=== PATIENT | female | born 1970 ===

== ENCOUNTER → 2017-04-30 | Outpatient (CLI) | payer BC ==
--- NOTE | 2017-05-03 13:48 | MAMMOGRAPHY REPORT ---
BILATERAL DIGITAL SCREENING MAMMOGRAM TOMOSYNTHESIS WITH CAD: 04/30/2017 CLINICAL HISTORY: Routine screening. TECHNIQUE: Breast tomosynthesis in addition to standard 2D mammography was performed. Current study was also evaluated with a Computer Aided Detection (CAD) system. COMPARISON: Comparison is made to exams dated: 06/11/2014 mammogram and 04/29/2016 mammogram - [facility]. Also 09/02/2012 mammogram. BREAST COMPOSITION: There are scattered areas of fibroglandular density in both breasts. FINDINGS: There is a small oval partially circumscribed and partially obscured 8 mm mass in the righ t superior breast, thought to project laterally on the cc view, which may represent a cyst or intrama mmary lymph node although spot compression tomosynthesis views and possible breast ultrasound are rec ommended for further evaluation. The remainder of both breasts are stable compared to prior exams, without suspicious masses, calcific ations, or areas of architectural distortion noted. Scattered bilateral benign-appearing calcificati ons are again noted. IMPRESSION: ACR BI-RADS CATEGORY 0: INCOMPLETE EVALUATION: NEED ADDITIONAL IMAGING EVALUATION Right superior breast mass, for which additional imaging evaluation is recommended. The patient will be called to schedule an appointment. Approximately 10% of breast cancers are not detected with mammography. A negative mammographic report should not delay biopsy if a clinically suggestive mass is present. Tamika Ambrosio M.D. ah/:05/01/2017 14:53:25 Textile Engineer: Gustavo MINOR(Sandra)(M), [facility] letter sent: Addl Imaging 0 BI-RADS Code: ACR BI-RADS Category 0: Incomplete Evaluation: Need Additional Imaging Evaluation
== END | disposition home or self-care (01) ==
LOC: C.MAMM 08:31
PROVIDERS: ATTEND Family Medicine
DX: Z12.31 Encounter for screening mammogram for malignant neoplasm of breast (principal); N63 Unspecified lump in breast

== ENCOUNTER → 2017-05-12 | Outpatient (CLI) | payer BC ==
--- NOTE | 2017-05-12 13:50 | MAMMOGRAPHY REPORT ---
UNILATERAL RIGHT DIGITAL DIAGNOSTIC MAMMOGRAM TOMOSYNTHESIS AND TARGETED RIGHT ULTRASOUND: 05/12/2017 CLINICAL HISTORY: 46-year-old woman called back from screening mammography for a partially circumscri bed and obscured oval 8 x 6 mm mass in the superior posterior breast on the MLO view. TECHNIQUE: Spot compression right CC and MLO 2-D and tomosynthesis images were obtained. COMPARISON: Comparison is made to exams dated: 04/30/2017 mammogram, 04/29/2016 mammogram, 06/11/2014 ammogram - [facility], and 09/02/2012 mammogram. BREAST COMPOSITION: There are scattered areas of fibroglandular density in the right breast. FINDINGS: There is effacement of the possible 8 x 6 mm mass in the superior posterior right breast o n the spot compression MLO view. No corresponding mass, architectural distortion or new asymmetry is seen on the tomosynthesis images performed in the superior posterior breast in the MLO projection. There is no evidence of a suspicious mass or architectural distortion on the spot compression CC view including tomosynthesis images. When comparing the current spot compression MLO view back to prior available for field MLO mammograms, the glandular pattern is similar in the posterior superior breast , suggesting the possible mass represented summation artifact. Targeted ultrasound was performed in the right upper outer quadrant. Sonographically normal tissue i s seen without a suspicious solid or cystic mass. IMPRESSION: ACR-BI-RADS CATEGORY 3: PROBABLY BENIGN, TARGETED ULTRASOUND ACR-BI-RADS CATEGORY 3: PRO BABLY BENIGN Effacement of the possible 8 mm mass in the superior posterior right breast mammographically, and no suspicious sonographic correlate identified. This most likely represented summation artifact and nor mal overlapping tissue, however, given the conspicuous nature of the finding on the screening mammogr am from 04/30/2017, a short interval follow-up right diagnostic mammogram including tomosynthesis stan ges and possible repeat ultrasound is recommended to ensure stability in 6 months. These results and recommendations were discussed with the patient at the time of the exam. Approximately 10% of breast cancers are not detected with mammography. A negative mammographic report should not delay biopsy if a clinically suggestive mass is present. Judith Blackburn M.D. ay/:05/12/2017 10:59:03 Scientist Propagator: Shelby MINOR(Sandra)(M), [facility] letter sent: Follow Up Recommended 3 BI-RADS Code: ACR-BI-RADS Category 3: Probably Benign Ultrasound BI-RADS: ACR-BI-RADS Category 3: Pr obably Benign
== END | disposition home or self-care (01) ==
LOC: C.MAMM 09:04
PROVIDERS: ATTEND Family Medicine
DX: N63 Unspecified lump in breast (principal)

== ENCOUNTER → 2017-05-14 | Outpatient (CLI) | payer BC | END | disposition home or self-care (01) | LOC: C.PAPS 11:49 | PROVIDERS: ATTEND Obstetrics & Gynecology | DX: Z01.419 Encounter for gynecological examination (general) (routine) without abnormal findings (principal); Z97.5 Presence of (intrauterine) contraceptive device ==

== ENCOUNTER → 2017-11-10 | Outpatient (CLI) | payer BC ==
--- NOTE | 2017-11-11 08:04 | MAMMOGRAPHY REPORT ---
UNILATERAL RIGHT DIGITAL DIAGNOSTIC MAMMOGRAM TOMOSYNTHESIS WITH CAD AND TARGETED RIGHT ULTRASOUND: CLINICAL HISTORY: 47-year-old woman presents for follow-up in the right breast of a possible 8 mm mas s versus focal asymmetry in the upper outer posterior right breast that was increasingly conspicuous compared to prior screening mammograms. No family history of breast cancer. TECHNIQUE: Right CC and MLO 2D and tomosynthesis images, spot magnification right CC and ML views wer e obtained. Current study was also evaluated with a Computer Aided Detection (CAD) system. COMPARISON: Comparison is made to exams dated: 05/12/2017 ultrasound, 05/12/2017 mammogram, 04/30/2017 ma mmogram, 06/11/2014 mammogram, 04/29/2016 mammogram - [facility], and 09/02/2012 mamm ogram. BREAST COMPOSITION: There are scattered areas of fibroglandular density in the right breast. FINDINGS: There is persistence of an 8 x 5 mm oval focal asymmetry versus partially circumscribed an d obscured mass in the upper outer posterior right breast. This has not significantly changed in siz e or visual appearance since the 04/30/2017 mammograms, but is increasingly conspicuous comparing to m ore remote prior mammograms. No associated architectural distortion or calcification. However, a po ssible new grouping of microcalcifications were seen in the upper inner posterior right breast for wh ich additional spot magnification views were obtained. One of the spot magnification ML views of the right breast demonstrates an artifact in the posterior aspect and was therefore repeated. The patient's gown still overlies the inferior posterior aspect o n the repeat view. The spot magnification views demonstrate a faint grouping of amorphous microcalci fications in the upper inner posterior breast measuring 5.1 mm. Given the interval development of th nisreen calcifications are indeterminate and further evaluation with stereotactic guided biopsy is recomm ended. Targeted ultrasound was performed in the upper outer quadrant of the right breast and including the 8 :00 axis. Sonographically normal tissue is seen without a discrete solid or cystic mass. No sonogra phic correlate to the 8 mm mammographic focal asymmetry versus mass. IMPRESSION: ACR BI-RADS CATEGORY 4: SUSPICIOUS, TARGETED ULTRASOUND ACR BI-RADS CATEGORY 4: SUSPICIO US 1. Stereotactic guided right breast biopsy is recommended for a new 5 mm grouping of amorphous micro calcifications in the upper inner posterior breast. 2. An 8 x 5 mm focal asymmetry versus partially circumscribed and obscured mass in the upper outer p osterior right breast appears stable dating back to 04/30/2017, but not clearly identified on more rem ote prior mammograms and no sonographic correlate identified to confirm a benign etiology. Therefore this asymmetry is also indeterminate and can be biopsied at the same time as the right breast calcif ications with stereotactic tomosynthesis guidance. These results and recommendations were discussed with the patient at the time of the exam. She tenta tively schedule the right breast biopsies prior to leaving her department. Approximately 10% of breast cancers are not detected with mammography. A negative mammographic report should not delay biopsy if a clinically suggestive mass is present. Judith Blackburn M.D. ay/:11/10/2017 09:00:35 Sausage Canner: Gretchen MINOR(Sandra)(M), [facility] letter sent: Abnormal 4/5 BI-RADS Code: ACR BI-RADS Category 4: Suspicious Ultrasound BI-RADS: ACR BI-RADS Category 4: Suspici ous
--- NOTE | 2017-11-16 11:07 | CODING QUERY NO DIAGNOSIS ---
TREATMENT RENDERED WITHOUT A DIAGNOSIS Dr. Walton, To promote full compliance with coding requirements relating to patient care, physician participation is requested in all cases of home health care provider uncertainty. Please assist us with providing a diagnosis/symptom for the test(s) below: A diagnosis/symptom was not documented on your Order. A valid diagnosis/symptom is required to bill all insurances. Please remember that we are unable to code a diagnosis of rule out, probable, possible, questionable, or suspected. Tests that require a diagnosis: * UNILATERAL RT TOMOSYNTHESIS DIAGNOSIS: * DIAGNOSTIC MAMMO RIGHT W/ CAD DIAGNOSIS: * ULTRASOUND BREAST LIMITED DIAGNOSIS: DATE OF SERVICE: 11/10/17 Provider Signature: Date: Thank you Jignesh Del Rio [facility] Information Management Once completed, please kindly fax back to [phone] For questions please call [phone]
== END | disposition home or self-care (01) ==
LOC: C.MAMM 08:04
PROVIDERS: ATTEND Family Medicine
DX: R92.8 Other abnormal and inconclusive findings on diagnostic imaging of breast (principal); R92.0 Mammographic microcalcification found on diagnostic imaging of breast

== ENCOUNTER → 2017-11-16 | Outpatient (CLI) | payer BC ==
--- NOTE | 2017-11-16 15:13 | MAMMOGRAPHY REPORT ---
UNILATERAL RIGHT DIGITAL DIAGNOSTIC MAMMOGRAM TOMOSYNTHESIS: 11/16/2017 CLINICAL HISTORY: Indeterminate grouping of microcalcifications in the upper inner posterior right br east, and focal asymmetry measuring 8 x 5 mm in the upper outer posterior right breast without sonogr aphic correlate. Patient presents for stereotactic guided biopsy 2. COMPARISON: Comparison is made to exams dated: 11/10/2017 mammogram, 05/12/2017 mammogram, 04/30/2017 gordon mogram, 04/29/2016 mammogram, and 06/11/2014 mammogram - [facility]. PATIENT CONSENT: After explaining the risks, benefits and alternatives of the procedure to the patien t informed consent was obtained both verbally and in writing. Specific risks include: Bleeding, infe ction, puncture of adjacent structure, nontarget biopsy, sampling error, metal allergy, pain and medi cation reaction. A timeout was performed and the right breast was agreed as the site of both biopsie s. BREAST COMPOSITION: There are scattered areas of fibroglandular density in the right breast. FINDINGS: The patient was placed prone on the stereotactic biopsy table and the calcifications in the upper inner posterior right breast were the first target for stereotactic biopsy. The right breast was placed in CC from above positioning. A scalp tomosynthesis view was obtained, which demonstrated the calcifications on the first image (superior position), suggesting they are dermal in origin. T herefore a skin BB was placed over the calcifications and a tangential view was obtained which demons trates the calcifications in question are indeed dermal and therefore benign. The stereotactic biops y was therefore canceled regarding the calcifications. Then positioning was adjusted and the right breast was placed in lateralmedial compression. The emily osynthesis copy was obtained which demonstrates the asymmetry but no persistent nodular or masslike a poncho currently identified in the targeting window. The breast was repositioned 3 additional times in the ML/MLO projection and also ultimately in the CC projection. There are findings of a focal asymme try in the upper outer posterior right breast, however, the masslike features do not persist. There is no evidence of a suspicious asymmetry and no evidence of a definite mass. This was discussed with the patient and we also decided to cancel this portion of the biopsy as well given that the mass did not persist and will obtain an MRI to exclude any abnormal enhancement or enhancing mass in that loc ation. IMPRESSION: ACR BI-RADS CATEGORY 0: INCOMPLETE EVALUATION: NEED ADDITIONAL IMAGING EVALUATION Canceled stereotactic guided biopsy 2 in the right breast. The new calcifications in the upper inne r posterior right breast corresponding to dermal calcifications on the current tomosynthesis poker prop player vi ews, and ultimately a tangential view. The 5 x 8 mm focal asymmetry in the upper outer posterior rig ht breast did not persist on the targeting tomosynthesis images, suggesting it represented normal ove rlapping tissue. However, given the conspicuous nature on both the recent and prior diagnostic mammo grams, a breast MRI is recommended to exclude any suspicious enhancing mass. These new recommendations were discussed with the patient after the canceled biopsies, and she tentat ively scheduled the breast MRI prior to leaving the department. Approximately 10% of breast cancers are not detected with mammography. A negative mammographic report should not delay biopsy if a clinically suggestive mass is present. Judith Blackburn M.D. ay/:11/16/2017 14:38:27 Microsoft Bi Consultant: Gustavo MINOR(R)(Cuong), [facility] letter sent: Addl Imaging 0 BI-RADS Code: ACR BI-RADS Category 0: Incomplete Evaluation: Need Additional Imaging Evaluation
== END | disposition home or self-care (01) ==
LOC: C.MAMM 12:36
PROVIDERS: ATTEND Family Medicine
DX: R92.1 Mammographic calcification found on diagnostic imaging of breast (principal); N64.9 Disorder of breast, unspecified